=== PATIENT | male | born 1960 | race Hispanic/Latino ===

== ENCOUNTER 2020-11-09 13:00 | Inpatient (IN) | payer OTHER ==
[~2020-11-09] VITALS: Ht 180.3 cm; Wt 139.0 kg
[2020-11-09 09:25] VITALS: BP 158/93
[2020-11-09 09:50] LABS: BASOPHILS % (AUTO) 0.3 % (0.0-5.0); EOSINOPHILS % (AUTO) 1.5 % (0.0-8.0); HEMATOCRIT 44.8 % (42-54); MEAN CORPUSCULAR HEMOGLOBIN 28.3 pg (27.0-33.0); MEAN CORPUSCULAR HGB CONC 31.5 g/dL (32.0-36.0); MEAN CORPUSCULAR VOLUME 89.8 fL (79-99); MONOCYTES % (AUTO) 6.9 % (3.0-13.0); PLATELET COUNT (AUTO) 195 K/uL (130-400); RED BLOOD CELL COUNT(AUTO) 4.99 MIL/uL (4.50-6.20); RED CELL DISTRIBUTION WIDTH 13.9 % (11.0-15.5); WHITE BLOOD COUNT (AUTO) 6.8 K/uL (4.8-10.8)
[2020-11-09 09:58] LABS: BILIRUBIN,URINE Negative (NEGATIVE); COLOR,URINE Yellow (YELLOW); GLUCOSE, URINE (UA) Negative (NEGATIVE); KETONES,URINE Negative (NEGATIVE); LEUKOCYTE ESTERASE ,URINE Negative (NEGATIVE); NITRATE,URINE Negative (NEGATIVE); OCCULT BLOOD,URINE Negative (NEGATIVE); PROTEIN,URINE Negative (NEGATIVE)
[2020-11-09 10:01] LABS: PROTHROMBIN TIME 10.9 SEC (9.6-11.6)
[2020-11-09 10:04] LABS: CREATININE 0.8 mg/dL (0.5-1.5); POTASSIUM 4.1 mmol/L (3.5-5.1)
[2020-11-09 10:19] LABS: APPEARANCE,URINE CLEAR (CLEAR)
[2020-11-10] MEDS ORDERED: ASPI-1197 PO (13:41)
[2020-11-10] MEDS ORDERED: CARI350T26 PO (13:41)
[2020-11-10] MEDS ORDERED: DULO30CA52 PO (13:41)
[2020-11-10] MEDS ORDERED: CLOB50SO2 OU (13:41)
[2020-11-10] MEDS ORDERED: PRAV80TA21 PO (13:41)
[2020-11-10] MEDS ORDERED: BUSP15TA3 PO (13:41)
[2020-11-10] MEDS ORDERED: PRAZ2CAP2 PO (13:41)
[2020-11-10] MEDS ORDERED: CHOL100040 PO (13:41)
[2020-11-10] MEDS ORDERED: CARB-196 OP (13:41)
[2020-11-10] MEDS ORDERED: LOSA50TA64 PO (13:41)
[2020-11-10] MEDS ORDERED: INSLAN SQ (13:41)
[2020-11-11] VITALS (30 sets, daily range): BP systolic 90–194; BP diastolic 56–111
[2020-11-11] MEDS ORDERED: 0.9%NACL 1000ML 1,000 ML IV ONE (07:15)
[2020-11-11] MEDS: CEFAZOLIN SODIUM 1 GM VIAL ONE ×2 (07:41→11:35)
[2020-11-11] MEDS ORDERED: TRANEXAMIC ACID 1000MG/10ML ONE ×2 (09:21→13:59)
[2020-11-11] MEDS ORDERED: CEFAZOLIN SODIUM 1 GM VIAL ONE (09:21)
[2020-11-11] MEDS ORDERED: FENTANYL CITRATE PF 50 MCG/1 ML 2ML VIAL ONE ×3 (09:34→12:53)
[2020-11-11] MEDS ORDERED: ROCURONIUM 10MG/1ML SYR 10 MG/ML ML ONE ×2 (09:34→11:22)
[2020-11-11] MEDS ORDERED: PROPOFOL 10 MG/ML 20ML VIAL IV ONE ×2 (09:34→13:11)
[2020-11-11] MEDS ORDERED: DEXAMETHASONE SOD PHOSPHATE 10MG/ML 1ML VIAL ONE (09:34)
[2020-11-11] MEDS ORDERED: MIDAZOLAM HCL 1 MG/ML 2ML VIAL ONE (09:34)
[2020-11-11] MEDS ORDERED: DIGOXIN 250 MCG/ML 2ML AMP ONE (09:34)
[2020-11-11] MEDS ORDERED: ONDANSETRON 4MG INJ ONE (09:34)
[2020-11-11] MEDS ORDERED: SUCCINYLCHOLINE CHLORIDE 20 MG/ML 10 ML VIAL ONE (09:34)
[2020-11-11] MEDS ORDERED: ROPIVACAINE 0.5% 5MG/ML 30ML IJ ONE (09:37)
[2020-11-11] MEDS ORDERED: EPHEDRINE SULFATE 50 MG/ML AMPULE ONE (11:10)
[2020-11-11] MEDS ORDERED: CEFAZOLIN SODIUM 1 GM VIAL IRRIG ONE (11:30)
[2020-11-11] MEDS ORDERED: GLYCOPYRROLATE 1 MG/5 ML SYRINGE ONE (12:52)
[2020-11-11] MEDS ORDERED: LIDOCAINE HCL-MPF 1% 2ML VIAL IV PRN (13:00)
[2020-11-11] MEDS ORDERED: POTASSIUM CHLORIDE 20MEQ/100ML 100 ML IV PRN (13:00)
[2020-11-11] MEDS ORDERED: TRAMADOL HCL 50 MG TABLET PO PRN (13:00)
[2020-11-11] MEDS ORDERED: TEMAZEPAM 15 MG CAPSULE PO PRN (13:00)
[2020-11-11] MEDS ORDERED: OXYCODONE HCL 5 MG TAB PO PRN (13:00)
[2020-11-11] MEDS ORDERED: ONDANSETRON 4MG INJ IVP PRN (13:00)
[2020-11-11] MEDS: ACETAMINOPHEN 500 MG TABLET PO SCH ×2 (13:00→20:21)
[2020-11-11] MEDS ORDERED: DiphenhydrAMINE HCL 50 MG/ML VIAL IVP PRN (13:00)
[2020-11-11] MEDS ORDERED: FERROUS FUMARATE 324 MG TABLET PO PRN (13:00)
[2020-11-11] MEDS: 0.9%NACL 1000ML 1,000 ML IV SCH ×2 (13:00→22:05)
[2020-11-11] MEDS ORDERED: KCL 20 MEQ ERTAB PO PRN (13:00)
[2020-11-11] MEDS ORDERED: POTASSIUM CHLORIDE 10% ELIXIR 20 MEQ/15 ML UDCUP PO PRN (13:00)
[2020-11-11] MEDS ORDERED: MEPERIDINE-PF 25 MG/ML SYG ONE ×2 (13:13→14:37)
[2020-11-11] MEDS: OXYCODONE HCL 5 MG TAB PO PRN ×2 (15:39→20:22)
[2020-11-11] MEDS: INSULIN HUMULIN R 100 UNIT/ML 3ML SQ SCH ×2 (16:30→22:03)
[2020-11-11] MEDS ORDERED: CARISOPRODOL 350 MG TABLET PO PRN (17:30)
[2020-11-11] MEDS ORDERED: LOSARTAN 50 MG TABLET ONE (17:56)
[2020-11-11] MEDS: KETOROLAC 15MG/ML VIAL (15MG/ML) IV PRN (17:57)
[2020-11-11] MEDS: PRAZOSIN HCL 2 MG PO SCH (20:20)
[2020-11-11] MEDS: PRAVASTATIN SODIUM 80 MG PO SCH (20:20)
[2020-11-11] MEDS: CARBOXYMETHYLCELLULOS OP SCH (20:22)
[2020-11-11] MEDS: CELECOXIB 200 MG CAP PO SCH (20:22)
[2020-11-11] MEDS: BUSPIRONE HCL 5 MG TABLET PO SCH (20:22)
[2020-11-11] MEDS: FAMOTIDINE 20MG TAB PO SCH (20:22)
[2020-11-11] MEDS: GLYCERIN OP SCH (20:22)
[2020-11-11] MEDS: PREGABALIN 25 MG CAP PO SCH (20:22)
[2020-11-11] MEDS: CEFAZOLIN 3GM /D5W 100ML 100 ML IV SCH (20:22)
[2020-11-11] MEDS: INSULIN GLARGINE 100 UNITS/ML 10 ML VIAL SQ SCH (22:04)
[2020-11-12] MEDS: CEFAZOLIN 3GM /D5W 100ML 100 ML IV SCH (02:48)
[2020-11-12 04:19] VITALS: BP 134/85
[2020-11-12] MEDS: ACETAMINOPHEN 500 MG TABLET PO SCH ×3 (04:39→20:14)
[2020-11-12 05:07] LABS: HEMATOCRIT 40.9 % (42-54); MEAN CORPUSCULAR HEMOGLOBIN 27.8 pg (27.0-33.0); MEAN CORPUSCULAR HGB CONC 30.6 g/dL (32.0-36.0); MEAN CORPUSCULAR VOLUME 91.1 fL (79-99); PLATELET COUNT (AUTO) 199 K/uL (130-400); RED BLOOD CELL COUNT(AUTO) 4.49 MIL/uL (4.50-6.20); RED CELL DISTRIBUTION WIDTH 13.6 % (11.0-15.5); WHITE BLOOD COUNT (AUTO) 9.4 K/uL (4.8-10.8)
[2020-11-12] MEDS: OXYCODONE HCL 5 MG TAB PO PRN ×4 (05:28→20:09)
[2020-11-12 05:33] LABS: CREATININE 0.9 mg/dL (0.5-1.5); POTASSIUM 4.2 mmol/L (3.5-5.1)
[2020-11-12] MEDS: INSULIN HUMULIN R 100 UNIT/ML 3ML SQ SCH ×4 (06:04→20:53)
[2020-11-12 07:30] VITALS: BP 134/79
[2020-11-12] MEDS: KETOROLAC 15MG/ML VIAL (15MG/ML) IV PRN ×3 (08:19→23:31)
[2020-11-12] MEDS: GLYCERIN OP SCH ×2 (09:00→19:41)
[2020-11-12] MEDS: (Cholecalciferol (Vitamin D3) (Vitamin D3) 25 MCG) PO SCH (09:00)
[2020-11-12] MEDS: 0.9%NACL 1000ML 1,000 ML IV SCH (09:00)
[2020-11-12] MEDS: CARBOXYMETHYLCELLULOS OP SCH ×2 (09:00→19:41)
[2020-11-12] MEDS: CELECOXIB 200 MG CAP PO SCH ×2 (10:01→20:09)
[2020-11-12] MEDS: CALCIUM CARB 500MG PO PRN ×2 (10:02→20:11)
[2020-11-12] MEDS: APIXABAN 2.5 MG TABLET PO SCH ×2 (10:02→20:09)
[2020-11-12] MEDS: FAMOTIDINE 20MG TAB PO SCH ×2 (10:02→20:09)
[2020-11-12] MEDS: BUSPIRONE HCL 5 MG TABLET PO SCH ×2 (10:02→20:09)
[2020-11-12] MEDS: LOSARTAN 50 MG TABLET PO SCH (10:02)
[2020-11-12] MEDS: DULOXETINE HCL 30 MG CAP PO SCH (10:02)
[2020-11-12] MEDS: TAMSULOSIN HCL 0.4 MG CAP.ER.24H PO SCH (10:02)
[2020-11-12] MEDS: ASPIRIN 81MG CHEW TAB PO SCH (10:02)
[2020-11-12] MEDS: PREGABALIN 25 MG CAP PO SCH ×2 (10:03→20:09)
[2020-11-12] MEDS: POLYETHYLENE GLYCOL 3350 17 GM POWD.PACK PO SCH (10:03)
[2020-11-12 11:00] VITALS: BP 144/90
[2020-11-12 16:00] VITALS: BP 167/99
[2020-11-12] MEDS: PRAVASTATIN SODIUM 80 MG PO SCH (20:10)
[2020-11-12] MEDS: PRAZOSIN HCL 2 MG PO SCH (20:10)
[2020-11-12 20:48] VITALS: BP 152/94
[2020-11-12] MEDS: INSULIN GLARGINE 100 UNITS/ML 10 ML VIAL SQ SCH (20:53)
[2020-11-13 00:05] VITALS: BP 133/78
[2020-11-13] MEDS: ACETAMINOPHEN 500 MG TABLET PO SCH ×2 (04:11→12:36)
[2020-11-13 05:03] VITALS: BP 126/83
[2020-11-13] MEDS: INSULIN HUMULIN R 100 UNIT/ML 3ML SQ SCH ×3 (06:17→17:14)
[2020-11-13 07:47] VITALS: BP 144/87
[2020-11-13] MEDS: CARBOXYMETHYLCELLULOS OP SCH (09:00)
[2020-11-13] MEDS: TAMSULOSIN HCL 0.4 MG CAP.ER.24H PO SCH (09:00)
[2020-11-13] MEDS: (Cholecalciferol (Vitamin D3) (Vitamin D3) 25 MCG) PO SCH (09:00)
[2020-11-13] MEDS: GLYCERIN OP SCH (09:00)
[2020-11-13] MEDS: CELECOXIB 200 MG CAP PO SCH (09:16)
[2020-11-13] MEDS: DULOXETINE HCL 30 MG CAP PO SCH (09:16)
[2020-11-13] MEDS: OXYCODONE HCL 5 MG TAB PO PRN ×2 (09:17→12:52)
[2020-11-13] MEDS: LOSARTAN 50 MG TABLET PO SCH (09:17)
[2020-11-13] MEDS: FAMOTIDINE 20MG TAB PO SCH (09:17)
[2020-11-13] MEDS: PREGABALIN 25 MG CAP PO SCH (09:17)
[2020-11-13] MEDS: BUSPIRONE HCL 5 MG TABLET PO SCH (09:18)
[2020-11-13] MEDS: POLYETHYLENE GLYCOL 3350 17 GM POWD.PACK PO SCH (09:18)
[2020-11-13] MEDS: ASPIRIN 81MG CHEW TAB PO SCH (09:18)
[2020-11-13] MEDS: APIXABAN 2.5 MG TABLET PO SCH (09:19)
[2020-11-13 11:47] VITALS: BP 150/96
[2020-11-13 16:00] VITALS: BP 145/87
[2020-11-13] MEDS ORDERED: APIX2.5T PO (17:08)
[2020-11-13] MEDS ORDERED: HYDR-4060 PO (17:08)
[2020-11-14] MEDS ORDERED: BISACODYL 10 MG SUPP.RECT RC PRN (13:00)
== END 2020-11-13 19:57 | disposition home health service (06) | DRG 470 ==
LOC: EDSTATUS 13:00 → OBSVTOIN 11-11 05:58 → DAHIP 11-11 05:58 → INTOOBSV 11-11 05:58 → 3DH 11-11 16:15
PROVIDERS: ADMIT Orthopaedic Surgery; ATTEND Orthopaedic Surgery
PROC: 0SRC0J9 Replacement of Right Knee Joint with Synthetic Substitute, Cemented, Open Approach (ICD-10-PCS; principal; 2020-11-11 10:32)
DX: M17.11 Unilateral primary osteoarthritis, right knee (principal); Z68.41 Body mass index [BMI] 40.0-44.9, adult; N40.0 Benign prostatic hyperplasia without lower urinary tract symptoms; I10 Essential (primary) hypertension; Z20.822 Contact with and (suspected) exposure to COVID-19; E03.9 Hypothyroidism, unspecified; F32.9 Major depressive disorder, single episode, unspecified; E78.5 Hyperlipidemia, unspecified; F41.9 Anxiety disorder, unspecified; E11.9 Type 2 diabetes mellitus without complications; Z96.0 Presence of urogenital implants; G89.29 Other chronic pain; Z87.442 Personal history of urinary calculi; Z98.84 Bariatric surgery status; Z88.8 Allergy status to other drugs, medicaments and biological substances; E66.01 Morbid (severe) obesity due to excess calories
CPT/HCPCS: 36415; 80048; 81003; 82948; 85025; 85027; 85610; 87088; 87635; 87641; 97039; A4606; G0378; J0330; J0690; J1100; J1160; J1815; J1885; J2175; J2250; J2405; J2704; J2795; J3010; J3490; J7030; J7120